=== PATIENT | male | born 1965 | race Caucasian/White ===

== ENCOUNTER 2023-07-16 18:01 | Emergency (ER) | payer MEDICARE, OTHER ==
[~2023-07-16] VITALS: Ht 182.9 cm; Wt 124.0 kg
[2023-07-16] MEDS ORDERED: ABILIFY20 MG PO (18:13)
[2023-07-16] MEDS ORDERED: NORVASC5 MG PO (18:14)
[2023-07-16] MEDS ORDERED: VENTOLIN HFA18 GM INH (18:14)
[2023-07-16] MEDS ORDERED: ASPIRIN81 MG PO (18:15)
[2023-07-16] MEDS ORDERED: JARDIANCE10 MG PO (18:15)
[2023-07-16] MEDS ORDERED: LIPITOR40 MG PO (18:15)
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
[2023-07-16 18:16] LABS: EOSINOPHILS 5.4 % (0-6); HEMATOCRIT 56.5 % (35.0-50.0); HEMOGLOBIN 18.3 g/dL (12.0-18.0); LYMPHOCYTES 25.7 % (24-44); MCH 28.9 (27-36); MCHC 32.4 g/dl (30-36); MCV 89.2 fl (81-99); MONOCYTES 11.8 % (0-12); NEUTROPHILS 56.1 % (39-80); PLATELET COUNT 320 K/uL (140-440); RBC 6.34 M/ul (4.3-5.7); RDW 15.2 (10.5-15.0)
[2023-07-16] MEDS ORDERED: TRELEGY ELLIPT1 EAC1 INH (18:16)
[2023-07-16] MEDS ORDERED: FLOMAX0.4 MG PO (18:16)
[2023-07-16] MEDS ORDERED: ALDACTONE25 MG PO (18:16)
[2023-07-16] MEDS ORDERED: NEURONTIN100 MG PO (18:16)
[2023-07-16 18:37] LABS: BILIRUBIN, URINE NEGATIVE (negative); BLOOD/HGB, URINE NEGATIVE (Negative); KETONE, URINE NEGATIVE (Negative); LEUK ESTERASE, URINE NEGATIVE (negative); NITRITE, URINE NEGATIVE (negative)
[2023-07-16 18:59] LABS: ACETAMINOPHEN 0 ug/mL (10-30); ALBUMIN 3.4 g/dL (3.4-5.0); ALBUMIN/GLOBULIN RATIO 0.77 (1.1-2.4); ALCOHOL, MEDICAL <3 ng/dL (<3); ALKALINE PHOSPHATASE 99 U/L (46-116); ALT (SGPT) 54 U/L (14-59); ANION GAP 14.2 (7-21); AST (SGOT) 39 U/L (15-37); BILIRUBIN, TOTAL 0.7 ng/dL (0.2-1.0); CALCIUM 8.7 mg/dL (8.5-10.1); CARBON DIOXIDE 22 mmol/L (21-32); CHLORIDE 104 mmol/L (98-107); GLOMERULAR FILTRATION RATE,EST 70 mL/min (>60); POTASSIUM 4.2 mmol/L (3.5-5.1); PROTEIN, TOTAL 7.8 g/dL (6.4-8.2); SALICYLATE 1.2 mg/dL (2.8-20.0); TSH, 3RD GENERATION 1.045 uIU/mL (0.358-3.740); UREA NITROGEN 12 mg/dL (7-18)
[2023-07-16 19:10] LABS: AMPHETAMINES, URINE POSITIVE (NEGATIVE); BARBITURATES, URINE NEGATIVE (NEGATIVE); BENZODIAZEPINE, URINE NEGATIVE (NEGATIVE); BUPRENORPHINE, URINE NEGATIVE (NEGATIVE); CANNABINOID, URINE NEGATIVE (NEGATIVE); COCAINE, URINE NEGATIVE (NEGATIVE); ECSTASY, URINE POSITIVE (NEGATIVE); FENTANYL, URINE NEGATIVE (NEGATIVE); METHADONE, URINE NEGATIVE (NEGATIVE); OPIATES, URINE NEGATIVE (NEGATIVE); OXYCODONE, URINE NEGATIVE (NEGATIVE); PHENCYCLIDINE, URINE NEGATIVE (NEGATIVE)
--- NOTE | 2023-07-16 20:59 | NUR ---
Pt up to bathroom to void, then returned to bed. Cup of water given. VS done and 02 sat noted to be 88%-89% on 3L/NC. Dr Mejia notifed and came in to assess pt. and listen to lungs;which he stated were clear sounding. Pt does report that he has a history of shortness of breath upon exertion. Pt states that he does wear 02 at home and uses 3 to 4/L. Dr Mejia ordered to increase 02 to 4L/NC. 02 sats maintaining in the 90%-92% range. Pt appears comfortable and is resting.
--- NOTE | 2023-07-16 21:10 | NUR ---
VS done at 2044. B/P 127/75 (MAP85),Pulse 74,Resp 20,Temp. 97.7, 02 sat 88%-89% on 3L/NC; 02 increased to 4L/NC and 02 sat 90-94%
[2023-07-17 13:22] VITALS: BP 126/80
== END 2023-07-17 13:23 | disposition home or self-care (01) ==
LOC: ED 18:01
PROVIDERS: Internal Medicine
DX: R45.851 Suicidal ideations (principal); I10 Essential (primary) hypertension; J44.9 Chronic obstructive pulmonary disease, unspecified; E78.00 Pure hypercholesterolemia, unspecified; F32.A Depression, unspecified; Z79.899 Other long term (current) drug therapy; Z79.82 Long term (current) use of aspirin; Z99.81 Dependence on supplemental oxygen
CPT/HCPCS: 36415; 80053; 80307; 81003; 84443; 85025; A9270; G0480